=== PATIENT | female | born 1965 | race Caucasian/White ===

== ENCOUNTER 2017-06-12 11:48 | Day surgery (SDC) | payer OTHER ==
[~2017-06-12] VITALS: Ht 160 cm; Wt 87.3 kg
[~2017-06-12 11:48] MED LIST: CETI10; CLARITIN10 MG; ESCI20; GABA600 PO; HYDACE5 PO; LOSA50 PO; MELO7.5; PANT20 PO; Prilosec Otc20 MG PO; RANI150; RXHYDACE PO; TRAM50; TRAZ100
[2017-06-12] MEDS ORDERED: ESOM20 (13:14)
== END 2017-06-12 15:15 | disposition home or self-care (01) ==
LOC: ORSCSDS 11:48
PROVIDERS: Internal Medicine Gastroenterology
PROC: 0DBN8ZX Excision of Sigmoid Colon, Via Natural or Artificial Opening Endoscopic, Diagnostic (ICD-10-PCS; principal; 2017-06-12 13:00)
PROC: 0DBE8ZX Excision of Large Intestine, Via Natural or Artificial Opening Endoscopic, Diagnostic (ICD-10-PCS; principal; 2017-06-12 13:00)
DX: R19.7 Diarrhea, unspecified (principal); K52.9 Noninfective gastroenteritis and colitis, unspecified; D12.5 Benign neoplasm of sigmoid colon; E11.9 Type 2 diabetes mellitus without complications; I10 Essential (primary) hypertension; Z79.899 Other long term (current) drug therapy
CPT/HCPCS: 88305; J7120

== ENCOUNTER → 2018-08-23 | Outpatient (CLI) | payer OTHER ==
[~2018-08-23] MED LIST changes: +ESOM20
== END | disposition home or self-care (01) ==
LOC: LAB SHORT 13:29 → PLD 13:29
DX: R87.810 Cervical high risk human papillomavirus (HPV) DNA test positive (principal); R87.619 Unspecified abnormal cytological findings in specimens from cervix uteri
CPT/HCPCS: 88305

== ENCOUNTER 2018-10-13 11:56 | Emergency (ER) | payer OTHER ==
[~2018-10-13] VITALS: Ht 160 cm; Wt 83.5 kg
[2018-10-13] MEDS ORDERED: PROM25 PO (13:34)
[2018-10-13] MEDS ORDERED: Esgic Tablet1 EACH PO (13:34)
== END 2018-10-13 13:44 | disposition home or self-care (01) ==
LOC: ER 11:56
DX: J32.9 Chronic sinusitis, unspecified (principal); Z91.040 Latex allergy status; Z79.899 Other long term (current) drug therapy; I10 Essential (primary) hypertension
CPT/HCPCS: 96372; 99283-25; J0780; J1200; J1885

== ENCOUNTER 2023-06-03 14:25 | Emergency (ER) | payer OTHER ==
[~2023-06-03] VITALS: Ht 157.5 cm; Wt 86.2 kg
[~2023-06-03 14:25] MED LIST changes: +Esgic Tablet1 EACH PO; +PROM25 PO
[2023-06-03 14:40] VITALS: BP 180/105
== END 2023-06-03 14:47 | disposition home or self-care (01) ==
LOC: ER 14:25
DX: R19.7 Diarrhea, unspecified (principal); Z91.040 Latex allergy status; Z79.899 Other long term (current) drug therapy; I10 Essential (primary) hypertension
CPT/HCPCS: 99283; A9270